=== PATIENT | female | born 1970 | race Caucasian/White ===

== ENCOUNTER → 2020-12-10 07:54 | Outpatient (BNVA) | payer OTHER, SELFPAY | PROVIDERS: Visit Provider Internal Medicine ==

== ENCOUNTER 2020-12-11 15:25 | Outpatient (REF) | payer OTHER, SELFPAY ==
--- NOTE | ~2020-12-11 | US_ITS ---
EXAMINATION: US THYROID CLINICAL INFORMATION: Nontoxic multinodular goiter. COMPARISON: Ultrasound thyroid soft tissues neck 07/13/2018. TECHNIQUE: Linear transducer grayscale and color Doppler examination with attention to the region of the thyroid. FINDINGS: SIZE: Measurements of the thyroid lobes and nodules are given in sagittal, anteroposterior and transverse dimensions respectively. Right Thyroid Lobe: 5.4 x 1.3 x 1.2 cm, volume 4.1 mL. Previously 4.0 x 1.3 x 1.2 cm, volume 3.3 mL. Parenchyma: The gland echotexture is homogeneous. Thyroid vascularity is normal. Left Thyroid Lobe: 5.1 x 1.5 x 1.6 cm, volume 6.6 mL. Previously 5.4 x 1.9 x 1.5 cm, volume 8.1 mL. Parenchyma: The gland echotexture is homogeneous. Thyroid vascularity is normal. Isthmus: 0.23 cm in maximum AP dimension. Previously 0.30 cm. Estimated total number of nodules greater than or equal to 1 cm: 3. 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 Location: Left upper. Size: 1.1 x 0.62 x 1.0 cm, volume 0.40 mL. Previously: 1.5 x 0.62 x 1.0 cm, volume 0.50 mL. Nodule characteristics: Composition: Spongiform (0). Echogenicity: 0 Shape: 0 Margins: 0 Echogenic Foci: 0 ACR TI-RADS total points: 0 ACR TI-RADS category: 1 Significant change in size (>/= 20% in 2 dimensions and minimal increase of 2 mm or 50% or greater increase in volume): No. Change in features: No Change in ACR TI-RADS risk category: Non applicable. 2. Location: Left midpole. Size: 0.50 x 0.30 x 0.32 cm, volume 0.03 mL. Previously: 0.60 x 0.30 x 0.30 cm, volume 0.03 mL. Nodule characteristics: Composition: Mixed cystic and solid (1). Echogenicity: Isoechoic (1). Shape: Not taller than wide (0). Margins: Smooth (0). Echogenic Foci: Punctate echogenic foci (3). ACR TI-RADS total points: 5 ACR TI-RADS category: 4 Significant change in size (>/= 20% in 2 dimensions and minimal increase of 2 mm or 50% or greater increase in volume): No. Change in features: No Change in ACR TI-RADS risk category: Non applicable. 3. Location: Left lower pole. Size: 0.90 x 1.1 x 1.0 cm, volume 0.52 mL. Previously: Not seen. Nodule characteristics: Composition: Mixed cystic and solid (1). Echogenicity: Isoechoic (1). Shape: Taller than wide (3). Margins: Smooth (0). Echogenic Foci: Punctate echogenic foci (3). ACR TI-RADS total points: 8 ACR TI-RADS category: 5 Significant change in size (>/= 20% in 2 dimensions and minimal increase of 2 mm or 50% or greater increase in volume): Non applicable . Change in features: Non applicable. Change in ACR TI-RADS risk category: Non applicable. 4. Location: Left lower. Size: 1.5 x 1.2 x 1.0 cm, volume 0.94 mL. Previously: Not seen. Nodule characteristics: Composition: Mixed cystic and solid (1). Echogenicity: Isoechoic (1). Shape: Not taller than wide (0). Margins: Smooth (0). Echogenic Foci: None (0). ACR TI-RADS total points: 2 ACR TI-RADS category: 2 Significant change in size (>/= 20% in 2 dimensions and minimal increase of 2 mm or 50% or greater increase in volume): Non applicable Change in features: Non applicable Change in ACR TI-RADS risk category: Non applicable 5. Location: Left midpole. Size: 0.60 x 0.40 x 0.44 cm, volume 0.06 mL. Previously: 0.50 x 0.30 x 0.40 cm, volume 0.03 mL. Nodule characteristics: Composition: Cystic(0). ACR TI-RADS total points: 0 ACR TI-RADS category: 1 Significant change in size (>/= 20% in 2 dimensions and minimal increase of 2 mm or 50% or greater increase in volume): Non applicable Change in features: No Change in ACR TI-RADS risk category: No NODES: No lymphadenopathy is seen in the tissue surrounding the thyroid gland. US/US thyroid IMPRESSION: Multiple left-sided thyroid nodules. Nodule 1, follow up in 1 year. Nodule 2, no follow up necessary. Nodule 3, biopsy is recommended. Nodule 4, no follow up necessary. Nodule 5, no follow up necessary. ACR TI-RADS RECOMMENDATION REFERENCE: Ultrasound-guided fine-needle aspiration, followup ultrasound, no further follow up. * TR1 (0 point) and TR 2 (2 points): No FNA or follow up. * TR3 (3 points): FNA if more than or equal to 2.5 cm in maximum dimension, follow up ultrasound in 1, 3 and 5 years if 1.5 to 2.4 cm in maximum dimension. * TR4 (4-6 points): FNA if more than or equal to 1.5 cm in maximum dimension, follow up ultrasound in 1, 2, 3 and 5 years if 1 to 1.4 cm in maximum dimension. * TR5 (more than or equal to 7 points): FNA if more than or equal to 1 cm in maximum dimension, followup ultrasound every year for 5 years if 0.5 to 0.9 cm in maximum dimension. * TR3, TR4 or TR5 nodules that are below the size threshold for follow up receive no follow up.
== END 2020-12-11 15:26 | disposition home or self-care (01) ==
LOC: HO.HMGCX 15:25
PROVIDERS: PCP Nurse Practitioner Family; Visit Provider Internal Medicine
DX: E04.2 Nontoxic multinodular goiter (principal)
CPT/HCPCS: 76536

== ENCOUNTER 2020-12-12 08:06 | Outpatient (REF) | payer OTHER, SELFPAY ==
[2020-12-12 12:15] LABS: Thyroid Stimulating Hormone 0.77 uIU/mL (0.32-4.0)
== END 2020-12-12 08:07 | disposition home or self-care (01) ==
LOC: HO.HMGCLDS 08:06
PROVIDERS: PCP Nurse Practitioner Family; Visit Provider Internal Medicine
DX: E04.2 Nontoxic multinodular goiter (principal); E55.9 Vitamin D deficiency, unspecified
CPT/HCPCS: 36415; 82306; 84439; 84443

== ENCOUNTER 2021-12-02 11:26 | Outpatient (REF) | payer OTHER, SELFPAY ==
--- NOTE | ~2021-12-02 | US_ITS ---
EXAMINATION: US THYROID CLINICAL INFORMATION: Nontoxic multinodular goiter. COMPARISON: Ultrasound soft tissue head/neck thyroid dated 12/11/2020 and 07/13/2018. TECHNIQUE: Linear transducer grayscale and color Doppler examination with attention to the region of the thyroid. FINDINGS: SIZE: Measurements of the thyroid lobes and nodules are given in sagittal, anteroposterior and transverse dimensions respectively. Right Thyroid Lobe: 4.6 x 1.1 x 1.3 cm, volume 3.4 mL. Previously measured 5.4 x 1.3 x 1.2 cm and volume 4.1 mL. Parenchyma: The gland echotexture is homogeneous. Thyroid vascularity is normal. Left Thyroid Lobe: 5.1 x 1.5 x 1.6 cm, volume 6.4 mL. Previously it measured 5.1 x 1.5 x 1.6 cm and volume 6.6 mL Parenchyma: The gland echotexture is heterogeneous. Thyroid vascularity is increased. Isthmus: 0.3 cm in maximum AP dimension. Previously measured 0.2 Estimated total number of nodules greater than or equal to 1 cm: 1. Historical Society Director nodules are described as follows: 1. Location: Left superior. Size: 0.9 x 0.5 x 0.7 cm, volume 0.17 mL. Previously: 1.1 x 0.6 x 1.0 cm, volume 0.35 mL. Nodule characteristics: Composition: Solid (2). Echogenicity: Isoechoic (1). Shape: Not taller than wide (0). Margins: Ill-defined (0). Echogenic Foci: Punctate echogenic foci (3). ACR TI-RADS total points: 6 Previous: 0 ACR TI-RADS category: 4 Previous: 1 Significant change in size (>/= 20% in 2 dimensions and minimal increase of 2 mm or 50% or greater increase in volume): Minimal increase Change in features: Slight increased. Change in ACR TI-RADS risk category: Slight worsening of TI-RADS. Recommend continued follow-up. 2. Location: Left mid. Size: 2.5 x 1.2 x 1.5 cm, volume 2.33 mL. Previously: Cannot compared to previous ultrasound as it appears very different.. Nodule characteristics: Composition: Solid/almost completely solid (2). Echogenicity: Isoechoic (1). Shape: Not taller than wide (0). Margins: Ill-defined (0). Echogenic Foci: Punctate echogenic foci (3). ACR TI-RADS total points: 6 ACR TI-RADS category: 4 Significant change in size (>/= 20% in 2 dimensions and minimal increase of 2 mm or 50% or greater increase in volume): Significant increase in volume Change in features: Significant change in features Change in ACR TI-RADS risk category: Slightly increased 3. Location: Left superior. Size: 0.5 x 0.3 x 0.3 cm, volume 0.03 mL. Previously: 0.6 x 0.4 x 0.4 cm, volume 0.06 mL. Nodule characteristics: Composition: Cystic(0). ACR TI-RADS total points: 0 Previous: 0 ACR TI-RADS category: 1 Previous: 1 Significant change in size (>/= 20% in 2 dimensions and minimal increase of 2 mm or 50% or greater increase in volume): None Change in features: None Change in ACR TI-RADS risk category: None 4. Location: Left inferior. Size: 0.4 x 0.3 x 0.3 cm, volume 0.03 mL. Previously: New since the previous study. Nodule characteristics: Composition: Cystic(0). ACR TI-RADS total points: 0 ACR TI-RADS category: 1 5. Location: Left inferior. Size: 0.7 x 0.6 x 0.9 cm, volume 0.19 mL. Previously: 1.5 x 1.2 x 1.0 cm, volume 0.94 mL. Nodule characteristics: Composition: Mixed cystic and solid (1). Echogenicity: Cannot be determined (1). Shape: Not taller than wide (0). Margins: Ill-defined (0). Echogenic Foci: None (0). ACR TI-RADS total points: 2 Previous: 8 ACR TI-RADS category: 2 Previous: 5 Significant change in size (>/= 20% in 2 dimensions and minimal increase of 2 mm or 50% or greater increase in volume): Decreased Change in features: Slightly changed Change in ACR TI-RADS risk category: Improved NODES: No lymphadenopathy is seen in the tissue surrounding the thyroid gland. US/US thyroid IMPRESSION: Very heterogeneous heterogeneous vascular left thyroid lobe. There are 2 worrisome nodules. The second nodule measures 2.5 cm appearing different from the previous exam. Recommend biopsy. The fifth nodule is smaller in size but slightly different. Recommend continued follow-up of this and other nodules. ACR TI-RADS RECOMMENDATION REFERENCE: Ultrasound-guided fine-needle aspiration, followup ultrasound, no further follow up. * TR1 (0 point) and TR 2 (2 points): No FNA or follow up * TR3 (3 points): FNA if more than or equal to 2.5 cm in maximum dimension, followup ultrasound in 1, 3 and 5 years if 1.5 to 2.4 cm in maximum dimension. * TR4 (4-6 points): FNA if more than or equal to 1.5 cm in maximum dimension, followup ultrasound in 1, 2, 3 and 5 years if 1 to 1.4 cm in maximum dimension. * TR5 (more than or equal to 7 points): FNA if more than or equal to 1 cm in maximum dimension, followup ultrasound every year for 5 years if 0.5 to 0.9 cm in maximum dimension. * TR3, TR4 or TR5 nodules that are below the size threshold for follow up receive no follow up.
[2021-12-02 14:25] LABS: Free T4 (Free Thyroxine) 1.03 ng/dL (0.71-1.85); Thyroid Stimulating Hormone 0.22 uIU/mL (0.32-4.0); Vitamin D 25-OH Total 38.1 ng/mL (>30)
== END 2021-12-02 11:27 | disposition home or self-care (01) ==
LOC: HO.HMGCX 11:26
PROVIDERS: PCP Nurse Practitioner Family; Visit Provider Internal Medicine
DX: E04.2 Nontoxic multinodular goiter (principal); E55.9 Vitamin D deficiency, unspecified
CPT/HCPCS: 36415; 76536; 82306; 84439; 84443

== ENCOUNTER 2021-12-26 06:08 | Outpatient (REF) | payer OTHER, SELFPAY ==
[2021-12-26 12:35] LABS: Thyroid Stimulating Hormone 0.38 uIU/mL (0.32-4.0)
[2021-12-27 16:07] LABS: Triiodothyronine T3 Total 80 ng/dL (76-181)
[2021-12-27 22:52] LABS: Thyroglobulin Antibodies <1 IU/mL (< or = 1); Thyroid Peroxidase Antibodies <1 IU/mL (<9)
[2021-12-30 18:57] LABS: Thyrotropin Receptor Antibody <1.00 IU/L (<=2.00)
[2022-01-01 15:49] LABS: Thyroid Stimulating Immunoglob <89 % baseline (<140)
== END 2021-12-26 06:09 | disposition home or self-care (01) ==
LOC: HO.HMGCLDS 06:08
PROVIDERS: Visit Provider Internal Medicine
DX: E04.2 Nontoxic multinodular goiter (principal)
CPT/HCPCS: 36415; 83520; 84439; 84443; 84445; 84480; 86376; 86800

== ENCOUNTER 2022-02-05 07:52 | Outpatient (REF) | payer OTHER, SELFPAY ==
--- NOTE | 2022-02-05 08:26 | PM.OP ---
Brief Operative Note Date of Service: 02/05/22 Pre-op diagnosis: Multinodular Thyroid Procedure: EXAMINATION: US THYROID CLINICAL INFORMATION: Multinodular Thyroid COMPARISON: Prior TECHNIQUE: Linear transducer adkins-scale and color Doppler examination with attention to the region of the thyroid. FINDINGS: SIZE: Measurements of the thyroid lobes and nodules are given in sagittal, anteroposterior and transverse dimensions respectively. Right Thyroid Lobe: 1.2 x 4.5 x 1.3 cm, volume 3.7 mL. Parenchyma: The gland echotexture is heterogenous. Thyroid vascularity is normal. Left Thyroid Lobe: 1.7 x 5.4 x 1.3 cm, volume 3.9 mL. Parenchyma: The gland echotexture is heterogenous. Thyroid vascularity is increased. Isthmus: 0.2 cm in maximum AP dimension. RIGHT THYROID LOBE: There are 0 nodules. LEFT THYROID LOBE: There is 1 nodule. There is a 1.1 x 0.5 x 0.96 cm predominantly solid hypoechoic nodule. This has smooth margins, no calcification and normal intranodular flow. The remainder of the left thyroid lobe is diffusely heterogenous and there is a pseudonodule present, but no additional true nodules. NODES: No lymph nodes were assessed. IMPRESSION: A diffusely heterogenous thyroid gland with 1 true nodule present in the L lobe which has not significantly increased in size. There is a pseudonodule present in the L lobe. No repeat FNA biopsy is indicated. Surgeon: Alaina Zee, DO Was an Asset Protection Representative used for this Procedure?: No Estimated blood loss (mL): 0
== END 2022-02-05 07:53 | disposition home or self-care (01) ==
LOC: HO.US 07:52
PROVIDERS: Visit Provider Internal Medicine
DX: E04.2 Nontoxic multinodular goiter (principal)
CPT/HCPCS: 76536

== ENCOUNTER 2022-11-21 08:56 | Outpatient (REF) | payer OTHER, SELFPAY ==
--- NOTE | ~2022-11-21 | US_ITS ---
EXAMINATION: US THYROID CLINICAL INFORMATION: Nontoxic multinodular goiter. COMPARISON: Ultrasound soft tissue head/neck thyroid dated 12/02/2021 and 12/11/2020. TECHNIQUE: Linear transducer grayscale and color Doppler examination with attention to the region of the thyroid. FINDINGS: SIZE: Measurements of the thyroid lobes and nodules are given in sagittal, anteroposterior and transverse dimensions respectively. Right Thyroid Lobe: 4.8 x 1.2 x 1.4 cm, volume 4.2 mL. Previously 4.6 x 1.1 x 1.3 cm, volume 3.4 mL. Parenchyma: The gland echotexture is homogeneous. Thyroid vascularity is normal. Left Thyroid Lobe: 5.6 x 1.4 x 1.7 cm, volume 5.6 mL. Previously 5.1 x 1.5 x 1.6 cm, volume 6.4 mL. Parenchyma: The gland echotexture is heterogeneous. Thyroid vascularity is increased. Isthmus: 0.3 cm in maximum AP dimension. Previously 0.3 cm. Estimated total number of nodules greater than or equal to 1 cm: 2. 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 Location: Left superior. Size: 1.0 x 0.6 x 0.7 cm, volume 0.22 mL. Previously: 0.9 x 0.5 x 0.7 cm, volume 0.17 mL. Nodule characteristics: Composition: Solid (2). Echogenicity: Isoechoic (1). Shape: Not taller than wide (0). Margins: Ill-defined (0). Echogenic Foci: Punctate echogenic foci (3). ACR TI-RADS total points: 6 Previous: 6 ACR TI-RADS category: 4 Previous: 4 Significant change in size (>/= 20% in 2 dimensions and minimal increase of 2 mm or 50% or greater increase in volume): None Change in features: None Change in ACR TI-RADS risk category: None 2. Location: Left inferior. Size: 1.0 x 1.0 x 1.0 cm, volume 0.58 mL. Previously: 0.7 x 0.6 x 0.9 cm, volume 0.19 mL. Nodule characteristics: Composition: Mixed cystic and solid (1). Echogenicity: Isoechoic (1). Shape: Not taller than wide (0). Margins: Smooth (0). Echogenic Foci: None (0). ACR TI-RADS total points: 2 Previous: 2 ACR TI-RADS category: 2 Previous: 2 Significant change in size (>/= 20% in 2 dimensions and minimal increase of 2 mm or 50% or greater increase in volume): None Change in features: None Change in ACR TI-RADS risk category: None 3. Location: Isthmus. Size: 0.9 x 0.3 x 0.9 cm, volume 0.14 mL. Previously: New since the previous study. Nodule characteristics: Composition: Solid/almost completely solid (2). Echogenicity: Hypoechoic (2). Shape: Not taller than wide (0). Margins: Smooth (0). Echogenic Foci: None (0). ACR TI-RADS total points: 4 ACR TI-RADS category: 4 4. Location: Left superior. Size: 0.4 x 0.4 x 0.4 cm, volume 0.04 mL. Previously: 0.5 x 0.3 x 0.3 cm, volume 0.03 mL. Nodule characteristics: Composition: Cystic(0). ACR TI-RADS total points: 0 Previous: 0 ACR TI-RADS category: 1 Previous: 1 Significant change in size (>/= 20% in 2 dimensions and minimal increase of 2 mm or 50% or greater increase in volume): None Change in features: None Change in ACR TI-RADS risk category: None 5. Location: Left inferior. Size: 0.5 x 0.4 x 0.6 cm, volume 0.06 mL. Previously: 0.4 x 0.3 x 0.3 cm, volume 0.03 mL. Nodule characteristics: Composition: Cystic(0). ACR TI-RADS total points: 0 Previous: 0 ACR TI-RADS category: 1 Previous: 1 Significant change in size (>/= 20% in 2 dimensions and minimal increase of 2 mm or 50% or greater increase in volume): None Change in features: None Change in ACR TI-RADS risk category: None NODES: No lymphadenopathy is seen in the tissue surrounding the thyroid gland. US/US thyroid IMPRESSION: Multiple thyroid nodules are grossly stable. A new small nodule seen in the isthmus. Slightly heterogeneous and hypervascular left thyroid lobe. ACR TI-RADS RECOMMENDATION REFERENCE: Ultrasound-guided fine-needle aspiration, followup ultrasound, no further follow up. * TR1 (0 point) and TR2 (2 points): No FNA or follow up * TR3 (3 points): FNA if more than or equal to 2.5 cm in maximum dimension, followup ultrasound in 1, 3 and 5 years if 1.5 to 2.4 cm in maximum dimension. * TR4 (4-6 points): FNA if more than or equal to 1.5 cm in maximum dimension, followup ultrasound in 1, 2, 3 and 5 years if 1 to 1.4 cm in maximum dimension. * TR5 (more than or equal to 7 points): FNA if more than or equal to 1 cm in maximum dimension, followup ultrasound every year for 5 years if 0.5 to 0.9 cm in maximum dimension. * TR3, TR4 or TR5 nodules that are below the size threshold for follow up receive no follow up.
== END 2022-11-21 08:57 | disposition home or self-care (01) ==
LOC: HO.HMGCX 08:56
PROVIDERS: PCP Nurse Practitioner Family; Visit Provider Internal Medicine
DX: E04.2 Nontoxic multinodular goiter (principal)
CPT/HCPCS: 76536

== ENCOUNTER 2023-02-04 09:39 | Outpatient (AMB) | payer OTHER, SELFPAY ==
--- NOTE | 2023-02-04 09:39 | MHC.OFFVIS ---
Intake Intake Visit Reasons: F/U Thyroid nodules Intake Note: Thyroid Nodule follow up visit. Seo Coordinator Required: No Allergies chloraprep Allergy (Unknown, Uncoded 02/04/23 11:34) Unknown. 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 She was initially found to have a thyroid nodule 9 years ago. She was followed by [facility] [place] [facility] for 2 years, and was having frequent US to monitor. She was then lost to / for many years, and represented in 2019. She had FNA biopsy of the 1.7 cm L midpole thyroid nodule on 09/16/18, with cytology revealing benign results (bethesda category II). Does mention change in symptoms with worsening dysphagia, and sensation of food getting stuck. Also mentions sensation of choking while lying flat. Denies any symptoms of hyper or hypothyroidism. TSH was low, but she is currently taking biotin. Denies any history of head or neck irradiation. Denies any family history of thyroid cancer. 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 Thyroid US: 12/02/2021 Right Thyroid Lobe: 4.6 x 1.1 x 1.3 cm, volume 3.4 mL. Previously measured 5.4 x 1.3 x 1.2 cm and volume 4.1 mL. Parenchyma: The gland echotexture is homogeneous. Thyroid vascularity is normal. Left Thyroid Lobe: 5.1 x 1.5 x 1.6 cm, volume 6.4 mL. Previously it measured 5.1 x 1.5 x 1.6 cm and volume 6.6 mL Parenchyma: The gland echotexture is heterogeneous. Thyroid vascularity is increased. Isthmus: 0.3 cm in maximum AP dimension. Previously measured 0.2 Estimated total number of nodules greater than or equal to 1 cm: 1. Radio Broadcaster nodules are described as follows: 1.? Location: Left superior. ?? ? Size: 0.9 x 0.5 x 0.7 cm, volume 0.17 mL. ?? ? Previously: 1.1 x 0.6 x 1.0 cm, volume 0.35 mL. ?? ? Nodule characteristics: ?? ? Composition: Solid (2). ?? ? Echogenicity: Isoechoic (1). ?? ? Shape: Not taller than wide (0). ?? ? Margins: Ill-defined (0). ?? ? Echogenic Foci: Punctate echogenic foci (3).? ACR TI-RADS total points: 6 Previous: 0 ?? ? ACR TI-RADS category: 4 Previous: 1 ? Significant change in size (>/= 20% in 2 dimensions and minimal increase of 2 mm or 50% or greater increase in volume): Minimal increase ?? ? Change in features: Slight increased. ?? ? Change in ACR TI-RADS risk category: Slight worsening of TI-RADS. Recommend continued follow-up. 2.? Location: Left mid. ?? ? Size: 2.5 x 1.2 x 1.5 cm, volume 2.33 mL. ?? ? Previously: Cannot compared to previous ultrasound as it appears very different.. ?? ? Nodule characteristics: ?? ? Composition: Solid/almost completely solid (2). ?? ? Echogenicity: Isoechoic (1). ?? ? Shape: Not taller than wide (0). ?? ? Margins: Ill-defined (0). ?? ? Echogenic Foci: Punctate echogenic foci (3).? ACR TI-RADS total points: 6 ?? ? ACR TI-RADS category: 4 ? Significant change in size (>/= 20% in 2 dimensions and minimal increase of 2 mm or 50% or greater increase in volume): Significant increase in volume ?? ? Change in features: Significant change in features ?? ? Change in ACR TI-RADS risk category: Slightly increased 3.? Location: Left superior. ?? ? Size: 0.5 x 0.3 x 0.3 cm, volume 0.03 mL. ?? ? Previously: 0.6 x 0.4 x 0.4 cm, volume 0.06 mL. ?? ? Nodule characteristics: ?? ? Composition: Cystic(0). ?? ? ACR TI-RADS total points: 0 Previous: 0 ?? ? ACR TI-RADS category: 1 Previous: 1 ? Significant change in size (>/= 20% in 2 dimensions and minimal increase of 2 mm or 50% or greater increase in volume): None ?? ? Change in features: None ?? ? Change in ACR TI-RADS risk category: None 4.? Location: Left inferior. ?? ? Size: 0.4 x 0.3 x 0.3 cm, volume 0.03 mL. ?? ? Previously: New since the previous study. ?? ? Nodule characteristics: ?? ? Composition: Cystic(0). ?? ? ACR TI-RADS total points: 0 ?? ? ACR TI-RADS category: 1 5.? Location: Left inferior. ?? ? Size: 0.7 x 0.6 x 0.9 cm, volume 0.19 mL. ?? ? Previously: 1.5 x 1.2 x 1.0 cm, volume 0.94 mL. ?? ? Nodule characteristics: ?? ? Composition: Mixed cystic and solid (1). ?? ? Echogenicity: Cannot be determined (1). ?? ? Shape: Not taller than wide (0). ?? ? Margins: Ill-defined (0). ?? ? Echogenic Foci: None (0).? ACR TI-RADS total points: 2 Previous: 8 ?? ? ACR TI-RADS category: 2 Previous: 5 ? Significant change in size (>/= 20% in 2 dimensions and minimal increase of 2 mm or 50% or greater increase in volume): Decreased ?? ? Change in features: Slightly changed ?? ? Change in ACR TI-RADS risk category: Improved NODES: No lymphadenopathy is seen in the tissue surrounding the thyroid gland. Labs: Laboratory Tests 12/02/21 11:55 25-OH Vitamin D To maria c 38.1 TSH 0.22 L Free T4 1.03 PFSH Medical History Hamstring tendinitis Multinodular thyroid Osteoarthritis Vitamin D deficiency Surgical History History of breast biopsy History of tonsillectomy Family History Mother HTN (hypertension) HLD (hyperlipidemia) Psoriatic arthritis Father Obesity CHF (congestive heart failure) Social History Alcohol intake: current Patient Tobacco Use Status: Never used Tobacco Substance Use Type: Marijuana Assessment & Plan Assessment & Plan (1) Multinodular thyroid: Code(s): E04.2 - Nontoxic multinodular goiter Plan: Patient with a NTMNG with prior FNA of her 1.7 cm LMP thyroid nodule on 09/16/2018. Repeat US that I performed myself revealed no significant change in her nodule warranting repeat FNA biopsy. She can F/U from here on with her PCP for once a year surveillance US of the thyroid. If any significant growth or change is noted she can be referred back to Endocrinology. All of her questions were answered. She is in agreement with this plan of care. I spent 20 minutes in reviewing the record, seeing the patient and documenting in the medical record, including 5 minutes on the phone with the Patient. (2) Hyperthyroidism: Code(s): E05.90 - Thyrotoxicosis, unspecified without thyrotoxic crisis or storm Plan: She is due for repeat labs. I have asked her to complete these now. (3) Vitamin D deficiency: Code(s): E55.9 - Vitamin D deficiency, unspecified Plan: Vitamin D at goal. No changes. Telehealth Telehealth Location of provider rendering services: practice address Location of patient: address on file Patient Identification confirmed using: Name, : Yes Telehealth method: voice only Patient verbally consented to treatment: Yes Patient verbally consented to billing insurance company: Yes Patient informed of any privacy concerns related to visit: Yes Coding Level of Care Code Tele Est Pt Level 3 (64573) Diagnoses Multinodular thyroid E04.2 Hyperthyroidism E05.90 Vitamin D deficiency E55.9
== END 2023-02-04 15:22 | disposition home or self-care (01) ==
LOC: HO.ENCR 09:39
PROVIDERS: PCP Nurse Practitioner Family; Visit Provider Internal Medicine
DX: E04.2 Nontoxic multinodular goiter (principal); E05.90 Thyrotoxicosis, unspecified without thyrotoxic crisis or storm; E55.9 Vitamin D deficiency, unspecified
CPT/HCPCS: 99443

== ENCOUNTER → 2023-02-04 09:39 | Outpatient (BNVA) | payer OTHER, SELFPAY | PROVIDERS: PCP Nurse Practitioner Family; Visit Provider Internal Medicine ==

== ENCOUNTER 2023-08-03 08:43 | Outpatient (AMB) | payer OTHER, SELFPAY ==
--- NOTE | 2023-08-03 09:34 | MHC.OFFWIV ---
Intake Vital Signs 08/03/23 09:38 Height 5 ft 7 in Weight 64.864 kg BMI 22.4 BP 112/70 Blood Pressure Location Lt brachial Position Sitting Pulse 60 Pulse Source Pulse Oximeter Temp 98.1 F Temp Source Temporal Artery Scan Pulse Oximetry (%) 96 Oxygen Delivery Method Room Air Intake Visit Reasons: EP RT earache [place] dizzy [id number] Intake Note: pt is here today for earache nausea dizzy started 1 week ago Patient Tobacco Use Status: Never used Tobacco Allergies chloraprep Allergy (Unknown, Uncoded 04/21/23 12:24) Unknown. Do you need a note to return to daycare/school/sports/work: No HPI HPI Comments History of Present Illness Details 53-year-old female presents with complaints of bilateral ear fullness, discomfort and lightheadedness/disequilibrium ongoing for the past few days worsening. Patient has a longstanding history of cerumen impaction in ears. She has not sure if this is what is going on. She reports it just does not feel right. Denies vision changes, weakness, nausea, vomiting, chest pain, shortness of breath. Physical exam bilateral cerumen impaction Put Colace and bilateral ear canals. Allowing patient to sit for 10-15 minutes. Then will do irrigation with water. History and physical exam consistent with bilateral cerumen impaction. Unlikely vertigo, BPPV, posterior stroke, stroke, intracranial hemorrhage. NIH stroke scale 0 Educated patient on diagnosis and treatment plan, answered all question, patient verbalizes understanding. At this time patient will be discharged home, advised to return with new or worsening symptoms. Educated on worrisome signs and symptoms and when to return. At this time I feel comfortable discharge home. After irrigation very erythematous ear canal. [facility] Medical History Osteoarthritis Hamstring tendinitis Vitamin D deficiency Multinodular thyroid Surgical History History of breast biopsy History of tonsillectomy Family History Mother HTN (hypertension) HLD (hyperlipidemia) Psoriatic arthritis Father Obesity CHF (congestive heart failure) Social History Alcohol intake: current Patient Tobacco Use Status: Never used Tobacco Substance Use Type: Marijuana Review of Systems Const All systems reviewed & are unremarkable except as noted in HPI and below Physical Exam Vital Signs: Last Vital Signs Temp 98.1 F 08/03/23 09:38 Pulse 60 08/03/23 09:38 BP 112/70 08/03/23 09:38 Pulse Ox 96 08/03/23 09:38 Oxygen Delivery Method Room Air 08/03/23 09:38 BMI result Body Mass Index 22.4 vss Appearance: Alert.? Oriented X3.? No acute distress.? Head: Normocephalic, atraumatic, no step-offs or deformities Eyes: Pupils equal, round and reactive to light.? ENT: b/l ear canals w/ cerumen impaction Neck: Normal inspection.? Neck supple.? CVS: Normal heart rate and rhythm.? Pulses normal.? Respiratory: No respiratory distress.? Breath sounds normal.? Abdomen: Soft and nontender.? Skin: Skin warm and dry.? Normal skin color.? Normal skin turgor.? Extremities: No lower extremity edema.? No calf ttp. 5/5 strength to bilateral upper and lower extremities Neuro: Oriented X 3.? No motor deficit.? No sensory deficit. CN 2-12 intact . Normal hxomoj-wo-zhnm, onjs-ls-yxhg steady tandem gait normal coordination Assessment & Plan Assessment & Plan (1) Impacted cerumen of both ears: Code(s): H61.23 - Impacted cerumen, bilateral Plan Take your medications as prescribed. If you were prescribed antibiotics today, it is important that you take your medication to their entirety, do not skip any doses, do not finish them early. Follow-up with your primary care provider this week. Return to the emergency department with new or worsening symptoms. Such as fevers, chills, chest pain, shortness of breath, nausea, vomiting, dizziness, headache, vision changes, lethargy In case of emergency call 911 Medications: New ciprofloxacin-dexamethasone 0.3-0.1 % 4 drps otic (ears) BID 7.5 mL 0RF 7 days Coding Level of Care Code Est Pt Level 3 (08169) Diagnoses Impacted cerumen of both ears H61.23
[2023-08-03 09:38] VITALS: BP 112/70; PULSE 60; TEMP 36.7; O2SAT 96; BMI 22.4
== END 2023-08-03 10:41 | disposition home or self-care (01) ==
PROVIDERS: PCP Nurse Practitioner Family; Visit Provider Physician Assistant
DX: H61.23 Impacted cerumen, bilateral (principal)
CPT/HCPCS: 99213

== ENCOUNTER 2024-01-26 08:17 | Outpatient (AMB) | payer OTHER, SELFPAY ==
--- NOTE | 2024-01-26 08:39 | MHC.OFFWIV ---
Intake Vital Signs 01/26/24 08:40 Height 5 ft 7 in Weight 142 lb BMI 22.2 BP 108/62 Blood Pressure Location Rt brachial Position Sitting Pulse 69 Pulse Source Pulse Oximeter Temp 98.0 F Temp Source Oral Pulse Oximetry (%) 99 Oxygen Delivery Method Room Air Intake Visit Reasons: EP dizziness, nausea Intake Note: pt here c/o dizziness and nausea. Dizziness started Thursday morning. Nausea ongoing Patient Tobacco Use Status: Never used Tobacco Allergies chloraprep Allergy (Unknown, Uncoded 01/26/24 08:39) Unknown. Do you need a note to return to daycare/school/sports/work: No HPI EP dizziness, nausea HPI Details This note is constructed using voice recognition software. While every effort has been made to ensure accuracy, supervisory training specialist errors may have been included. The patient is a 53 year old female who presents to the clinic today with dizziness for 3 days. She notes that she has a history inner ear issues which typically occur over the summer secondary to her allergies. She typically does not recognize the allergies until it has impacted her ear. She also has a longstanding history of cerumen impaction, making it difficult to visualize the ear. She has longstanding history of thyroid disorder, and reports being up-to-date on her labs. She has actually been released by her hand bobbin cleaner due to long-term stability. She is compliant with her thyroid treatment regimen. She denies fever, chills, cough, shortness of breath, ear pain. 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 She is not tested herself at home for coronavirus. She denies any confusion, headache, altered strength, facial abnormalities, difficulty speaking, difficulty talking, difficulty walking. [facility] Medical History Osteoarthritis Hamstring tendinitis Vitamin D deficiency Multinodular thyroid Surgical History History of breast biopsy History of tonsillectomy Family History Mother HTN (hypertension) HLD (hyperlipidemia) Psoriatic arthritis Father Obesity CHF (congestive heart failure) Social History Alcohol intake: current Patient Tobacco Use Status: Never used Tobacco Substance Use Type: Marijuana Review of Systems Const All systems reviewed & are unremarkable except as noted in HPI and below Physical Exam Vital Signs: Last Vital Signs Temp 98.0 F 01/26/24 08:40 Pulse 69 01/26/24 08:40 BP 108/62 01/26/24 08:40 Pulse Ox 99 01/26/24 08:40 Oxygen Delivery Method Room Air 01/26/24 08:40 BMI result Body Mass Index 22.2 Const General: cooperative, healthy appearing, comfortable, no acute distress and alert Orientation/consciousness: patient oriented x3 Limitations: no limitations HEENT Head: Yes normal to inspection and Yes normocephalic Ears: hearing grossly normal bilaterally and TM abnormal with fluid behind the TM on the right (white) General nose exam: Normal external nose present Face and sinus: Yes normal facial exam and Yes sinuses nontender Mouth: Normal oral and palatal mucosa present and tongue normal Teeth and gingiva: dentition normal Throat: Yes posterior oropharynx normal Eyes General: appearance normal, both eyes and all related structures EOM: Nystagmus present (Horizontal) Neck Neck: Yes normal visual inspection, Yes full ROM and Yes no lymphadenopathy Resp Effort & Inspection: normal respiratory effort and able to speak in complete sentences Auscultation: clear to auscultation bilaterally Cardio Jugular venous distension: no JVD Palpation: normal PMI Rate: regular rate Heart sounds: S1 normal heart sound present, S2 normal heart sound present, no click, no gallops, no murmurs and no rubs Skin General skin exam: no rashes or lesions noted, elasticity normal and turgor normal Neuro General: patient oriented x3 Cranial nerves: Yes CN's II-XII intact bilaterally and Yes Nystagmus present (Horizontal) Extrem General: Yes normal to inspection, Yes full ROM, Yes capillary refill normal and Yes normal exam except as noted Psych Appearance: grossly normal Mental Status: mental status grossly normal Speech and movement: Normal speech and movement present Affect: normal affect Office Procedures Cerumen Removal From which ear canal was the cerumen removed: bilateral Removal: irrigation Notes: patient tolerated procedure well and no complications [id number] Irrigation/Lavage Assessment & Plan Assessment & Plan (1) Impacted cerumen of both ears: Code(s): H61.23 - Impacted cerumen, bilateral Plan: Irrigation performed bilaterally, patient tolerated well. (2) URI (upper respiratory infection): Code(s): J06.9 - Acute upper respiratory infection, unspecified Qualifiers: URI type: unspecified URI Qualified Code(s): J06.9 - Acute upper respiratory infection, unspecified Plan: Physical examination may reveal early URI, especially in setting of work exposures. COVID swab obtained to rule out etiology. Advised quarantine measures and masking, while awaiting results which we anticipate later today. (3) Vertigo: Code(s): R42 - Dizziness and giddiness Plan: Physical examination consistent with likely BPPV. Meclizine p.r.n. ordered for symptomatic management. Advised patient to follow up with primary care provider if needed for referrals to physical therapy. Patient to review [employer] video for half somersault for at-home symptomatic management. Advised hydration, rest, and avoidance of driving during episodes of dizzy spells. Physical examination suggest that perhaps patient is feeling really symptoms related to her allergies. Advised also trial of Flonase nasal spray as well as restarting her annual allergy medication. Plan See above for full details and plan. Orders: Orders SARS-CoV2/FLU/RSV Today J06.9 - Acute upper respiratory infection, unspecified Coding Level of Care Code Est Pt Level 3 (96094) Diagnoses Impacted cerumen of both ears H61.23 Upper respiratory tract infection, unspecified type J06.9 URI type: unspecified URI Vertigo R42 CPT Codes Office Procedure - CPT: 99170-Rdu Irrigation/Lavage ([id number])
[2024-01-26 08:40] VITALS: BP 108/62; PULSE 69; TEMP 36.7; O2SAT 99; BMI 22.2
== END 2024-01-26 10:08 | disposition home or self-care (01) ==
PROVIDERS: PCP Nurse Practitioner Family; Visit Provider Registered Nurse
DX: H61.23 Impacted cerumen, bilateral (principal)
CPT/HCPCS: 69209; 99213

== ENCOUNTER 2024-01-26 09:10 | Outpatient (REF) | payer OTHER, SELFPAY ==
[2024-01-26 11:27] LABS: Influenza A PCR NEGATIVE (Negative); Influenza B PCR NEGATIVE (Negative); Resp Syncy Virus RNA Qual PCR NEGATIVE (Negative); SARS COV2 PCR INHOUSE NEGATIVE (Negative)
== END 2024-01-26 09:11 | disposition home or self-care (01) ==
LOC: HO.LNP 09:10
PROVIDERS: Visit Provider Registered Nurse
DX: J06.9 Acute upper respiratory infection, unspecified (principal)
CPT/HCPCS: 0241U

== ENCOUNTER 2024-07-29 15:13 | Outpatient (REF) | payer OTHER, SELFPAY ==
--- NOTE | ~2024-07-29 | MR_ITS ---
EXAMINATION: MR BRAIN WITHOUT AND WITH CONTRAST CLINICAL INFORMATION: Nodules, headache, migraine. COMPARISON: None available. TECHNIQUE: Multiplanar, multisequence MRI of the brain was obtained before and after the intravenous administration of 6.5 mL (Gadavist) without reported immediate complications. FINDINGS: No acute intracranial hemorrhage, mass effect, midline shift, hydrocephalus or herniation. Zepeda-white matter differentiation is normal. No restricted diffusion. Posterior cranial fossa contents demonstrated no acute intracranial hemorrhage or mass effect. Sellar/suprasellar region is normal. Craniocervical junction is intact and normal. Midline structures are intact. No abnormal enhancement within the intra-axial or the extra-axial compartment of the cranium. No signal abnormality or enhancing lesion within the intraconal or the extraconal compartment of the orbits. Flow-void signal within the main cerebral vessels is normal. MR/MR head/brain wo/w con IMPRESSION: No acute or structural brain abnormality. No abnormal enhancing lesion and or mass. Electronically signed by: Kermit Lara MD 08/01/2024 07:17 AM ADAIR
[2024-07-29] MEDS: gadobutroL 7.5 ML VIAL IVPUSH (16:10)
== END 2024-07-29 15:14 | disposition home or self-care (01) ==
LOC: HO.MRI 15:13
PROVIDERS: PCP Registered Nurse; Visit Provider Registered Nurse
DX: R11.0 Nausea (principal); R51.9 Headache, unspecified; E78.2 Mixed hyperlipidemia
CPT/HCPCS: 70553; A9585

== ENCOUNTER → 2024-07-29 15:30 | Outpatient (BNV) | payer OTHER, SELFPAY | PROVIDERS: PCP Registered Nurse; Visit Provider Radiology Diagnostic Radiology | DX: G43.909 Migraine, unspecified, not intractable, without status migrainosus (principal) | CPT/HCPCS: 70553 ==

== ENCOUNTER 2024-09-26 08:06 | Outpatient (AMB) | payer OTHER, SELFPAY ==
[2024-09-26 08:13] VITALS: BP 106/70; PULSE 64; TEMP 36.8; O2SAT 95
--- NOTE | 2024-09-26 08:13 | AM.OFFWIN_ITS ---
Intake Vital Signs 09/26/24 08:13 Weight 142 lb BP 106/70 Blood Pressure Location Lt brachial Position Sitting Pulse 64 Pulse Source Pulse Oximeter Temp 98.2 F Temp Source Oral Pulse Oximetry (%) 95 Oxygen Delivery Method Room Air Intake Visit Reasons: EP ?Ear infection Intake Note: Patient here for bilat ear pain, nausea and headaches that started a couple of days ago. Patient Tobacco Use Status: Never used Tobacco Allergies chloraprep Allergy (Unknown, Uncoded 09/26/24 08:29) Unknown. Do you need a note to return to daycare/school/sports/work: No HPI HPI Comments History of Present Illness Details History of Present Illness - The patient is a 54-year-old female pr esenting with recurrent ear problems and hearing loss. - Ear pressure began at the end of last week, increased over the weekend after working. - Current symptoms include severe headac he, nausea, and marked ear pressure, particularly on the right side. 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 - Reports significant hearing loss, init ially impacting the right ear predominantly, now both. - The patient encounters a significant b uild-up of earwax, which may be contributing to her symptoms. Physical Exam General: Cooperative, healthy appearing, comfortable, no acute distress and well developed Orientation: Patient oriented x3 Limitations: No limitations Head: Normal to inspection Ears: External ears normal bilaterally, external auditory canal packed with cerumen bilaterally. Nose: Normal External nose present Face and sinus: Normal facial exam Eyes: Appearance normal, both eyes and all related structures Neck: Normal visual inspection and Yes full ROM Respiratory: Normal respiratory effort and able to speak in complete sentences. Skin: No rashes or lesions noted Neuro: Patient oriented x3 Extremities: Normal to inspection [facility] Medical History Osteoarthritis Hamstring tendinitis Vitamin D deficiency Multinodular thyroid Surgical History History of breast biopsy History of tonsillectomy Family History Mother HTN (hypertension) HLD (hyperlipidemia) Psoriatic arthritis Father Obesity CHF (congestive heart failure) Social History Alcohol intake: current Patient Tobacco Use Status: Never used Tobacco Substance Use Type: Marijuana Review of Systems Const All systems reviewed & are unremarkable except as noted in HPI and below Physical Exam Vital Signs: Last Vital Signs Temp 98.2 F 09/26/24 08:13 Pulse 64 09/26/24 08:13 BP 106/70 09/26/24 08:13 Pulse Ox 95 09/26/24 08:13 Oxygen Delivery Method Room Air 09/26/24 08:13 Office Procedures Cerumen Removal Details: left is clear, right is not clear, patient will continue to use Debrox drops and return to the clinic in a few days. From which ear canal was the cerumen removed: bilateral Removal: irrigation and otoscope w/curette Notes: patient tolerated procedure well, no complications and ear canal clear [id number] Irrigation/Lavage Assessment & Plan Assessment & Plan (1) Impacted cerumen of both ears: Code(s): H61.23 - Impacted cerumen, bilateral Plan: Given the substantial cerumen buildup observed, I will proceed with flushing the wax from the auditory canals, a procedure likely to relieve ear pressure and associated discomfort. Able to clear the cerumen from the left ear, tympanic membrane is normal. We were unable to clear all the cerumen from the right ear, patient will continue to use Debrox drops and return in a few days for flushing. Patient was informed and verbally consented to the use of an ambient scribe for clinic note documentation during this visit. Coding Level of Care Code Est Pt Level 3 (88547) Diagnoses Impacted cerumen of both ears H61.23 CPT Codes Office Procedure - CPT: 33191-Pnj Irrigation/Lavage ([id number])
== END 2024-09-26 09:37 | disposition home or self-care (01) ==
PROVIDERS: PCP Registered Nurse; Visit Provider Physician Assistant
DX: H61.23 Impacted cerumen, bilateral (principal)

== ENCOUNTER → 2024-09-26 08:06 | Outpatient (BNVA) | payer OTHER, SELFPAY | PROVIDERS: PCP Registered Nurse; Visit Provider Physician Assistant | DX: H61.23 Impacted cerumen, bilateral (principal) | CPT/HCPCS: 69210 ==

== ENCOUNTER 2025-02-13 08:12 | Outpatient (AMB) | payer OTHER, SELFPAY ==
--- NOTE | 2025-02-13 08:37 | MHC.OFFWIV ---
Intake Vital Signs 02/13/25 08:38 Height 5 ft 7 in Weight 135 lb BMI 21.1 BP 100/66 Blood Pressure Location Lt brachial Position Sitting Pulse 65 Pulse Source Pulse Oximeter Temp 98.3 F Temp Source Oral Pulse Oximetry (%) 97 Oxygen Delivery Method Room Air Intake Visit Reasons: EP-ears block and pain Intake Note: presents with bilaterally ear pain and blockage RT > LT Patient Tobacco Use Status: Never used Tobacco Allergies artificial sweeteners Allergy (Mild, Uncoded 02/13/25 08:39) headache, rash chloraprep Allergy (Mild, Uncoded 02/13/25 08:39) Hives Do you need a note to return to daycare/school/sports/work: Yes HPI HPI Comments History of Present Illness Details History - The patient is a 54-year-old female presenting with recurrent ear problems with associated vertigo. - The patient experiences recurrent ear problems exacerbated by fall allergies, resulting in earwax accumulation and blockage. - Symptoms include a sensation of a railroad spike on the right side of the face and vertigo, with the right ear being more affected. - The patient has been using ear drops to manage the wax buildup but reports chronic issues without a better solution. - Has not been to ENT since 2019. - She has no discharge, cold symptoms, MAHAN, fever, or chills. Physical Exam General: Cooperative, healthy appearing, comfortable, no acute distress and well developed Head: Normal to inspection Ears: External ears normal bilaterally. No tragus or mastoid tenderness noted. Cerumen noted in the canals bilaterally. TM's partially visualized on the right side due to wax blockage. Face and sinus: Normal facial exam. No TTP of the sinuses. Neck: Normal visual inspection. Full ROM. No lymphadenopathy noted. Respiratory: Normal respiratory effort and able to speak in complete sentences. Clear to auscultation bilaterally. No w/r/r noted. Cardiac: RRR, no m/r/g noted. Normal S1 and S2 noted. Skin: No rashes or lesions noted Neuro: Patient oriented x3 Patient was informed and verbally consented to the use of an ambient scribe for clinic note documentation during this visit. [facility] Medical History Osteoarthritis Hamstring tendinitis Vitamin D deficiency Multinodular thyroid Surgical History History of breast biopsy History of tonsillectomy Family History Mother HTN (hypertension) HLD (hyperlipidemia) Psoriatic arthritis Father Obesity CHF (congestive heart failure) Social History Alcohol intake: current Patient Tobacco Use Status: Never used Tobacco Substance Use Type: Marijuana Review of Systems Const All systems reviewed & are unremarkable except as noted in HPI and below Physical Exam Vital Signs: Last Vital Signs Temp 98.3 F 02/13/25 08:38 Pulse 65 02/13/25 08:38 BP 100/66 02/13/25 08:38 Pulse Ox 97 02/13/25 08:38 Oxygen Delivery Method Room Air 02/13/25 08:38 BMI result Body Mass Index 21.1 Office Procedures Cerumen Removal From which ear canal was the cerumen removed: bilateral Removal: irrigation Notes: patient tolerated procedure well, no complications and ear canal clear [id number] Irrigation/Lavage Assessment & Plan Assessment & Plan (1) Cerumen impaction: Code(s): H61.20 - Impacted cerumen, unspecified ear Qualifiers: Laterality: bilateral Qualified Code(s): H61.23 - Impacted cerumen, bilateral Plan Most likely cerumen vs OE vs OM vs ET dysfunction Plan - Plan to irrigate the ears to remove wax obstruction. - continue with Debrox drops - will refer to ENT Orders: Orders AMB Cerumen Removal Today H61.23 - Impacted cerumen, bilateral Referrals Ear/Nose/Throat Referral H61.20 - Impacted cerumen, unspecified ear Coding Level of Care Code Est Pt Level 3 (10749) Diagnoses Bilateral impacted cerumen H61.23 Laterality: bilateral CPT Codes Office Procedure - CPT: 76919-Ehf Irrigation/Lavage ([id number])
[2025-02-13 08:38] VITALS: BP 100/66; PULSE 65; TEMP 36.8; O2SAT 97; BMI 21.1
== END 2025-02-13 10:15 | disposition home or self-care (01) ==
PROVIDERS: PCP Registered Nurse; Visit Provider Physician Assistant Medical
DX: H61.23 Impacted cerumen, bilateral (principal)

== ENCOUNTER → 2025-02-13 08:12 | Outpatient (BNVA) | payer OTHER, SELFPAY | PROVIDERS: PCP Registered Nurse; Visit Provider Physician Assistant Medical | DX: H61.23 Impacted cerumen, bilateral (principal) | CPT/HCPCS: 69209 ==